=== PATIENT | female | born 1990 | race Caucasian/White ===

== ENCOUNTER → 2020-11-05 | Outpatient (CLI) | payer BC, OTHER ==
[~2020-11-05] MED LIST: NORCO 5-325 TA1 EACH PO; PRENATAL VITAM1 EAC5 PO; ZANTAC150 MG PO; ZOLOFT50 MG PO
== END ==
LOC: LAB 08:37
DX: D89.89 Other specified disorders involving the immune mechanism, not elsewhere classified (principal); N96 Recurrent pregnancy loss; R76.8 Other specified abnormal immunological findings in serum; M79.10 Myalgia, unspecified site; R53.83 Other fatigue
CPT/HCPCS: 36415; 82085; 82728

== ENCOUNTER 2020-12-13 10:10 | Emergency (ER) | payer BC, OTHER | END 2020-12-13 12:01 | disposition left against medical advice (07) | LOC: ER1 10:10 | DX: Z53.21 Procedure and treatment not carried out due to patient leaving prior to being seen by health care provider (principal) ==

== ENCOUNTER 2021-02-16 18:11 | Outpatient (CLI) | payer BC, OTHER | END 2021-02-16 21:04 | disposition home or self-care (01) | LOC: GENOP 18:11 | DX: O46.93 Antepartum hemorrhage, unspecified, third trimester (principal); O99.891 Other specified diseases and conditions complicating pregnancy; R10.9 Unspecified abdominal pain; M54.5 Low back pain; O47.03 False labor before 37 completed weeks of gestation, third trimester; Z3A.35 35 weeks gestation of pregnancy | CPT/HCPCS: 81001; 83518; 96360 ==

== ENCOUNTER 2021-10-06 09:19 | Emergency (ER) | payer OTHER ==
[2021-10-06 10:53] LABS: HEMOGLOBIN 13.3 gm/dl (12.3-15.3); RED BLOOD COUNT 4.48 M/UL (4.00-5.10); WHITE BLOOD COUNT 7.1 K/UL (4.5-11.0)
[2021-10-06 10:56] LABS: BUN/CREATININE RATIO 15 (0-10)
[2021-10-06] MEDS ORDERED: DICLOXACILLIN500 MG PO (12:04)
== END 2021-10-06 12:26 | disposition home or self-care (01) ==
LOC: ER1 09:19
PROVIDERS: Nurse Practitioner
DX: N61.0 Mastitis without abscess (principal); Z88.1 Allergy status to other antibiotic agents
CPT/HCPCS: 80048; 81001; 83605; 85025; 85652; 86140; 87040; 96374; 96375; 99283; J0696; J1885